=== PATIENT | female | born 1945 | race Caucasian/White ===

== ENCOUNTER 2017-06-03 10:26 | Emergency (ER) | payer MEDICARE, OTHER ==
[2017-06-03] MEDS ORDERED: LIDOCAINE PATCH 5% TOP STA (12:09)
[2017-06-03] MEDS ORDERED: DEXAMETHASONE 10 MG/ML VIAL PO STA (12:09)
[2017-06-03] MEDS ORDERED: CHERRY SYRUP 10 ML UDC PO ONE (12:24)
--- NOTE | 2017-06-03 12:29 | ED Physician Documentation ---
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 - Present Medications Home Medications: Ambulatory Orders Medication Instructions Recorded Confirmed Cyclobenzaprine [Flexeril] 5 mg 02/16/13 01/12/14 Omeprazole 20 mg PO 02/16/13 01/12/14 Pregabalin [Lyrica] 50 mg PO 02/16/13 01/12/14 buPROPion [Wellbutrin Sr] 100 mg PO BID 02/16/13 06/03/17 clonazePAM [KlonoPIN] 0.5 mg PO 02/16/13 01/12/14 Aspirin [Aspir 81] 01/12/14 01/12/14 Hyoscyamine Sulfate [Levsin-Sl] 0.125 mg SL TID #14 tab.subl 05/17/16 06/03/17 Ondansetron Odt [Zofran] 4 mg TL Q6H PRN #10 tablet 05/17/16 06/03/17 Pitavastatin Calcium [Livalo] 1 mg PO 05/17/16 05/17/16 Cyclobenzaprine [Flexeril] 10 mg PO BID PRN #10 tablet 06/03/17 Lidocaine Patch 5% [Lidoderm Patch] 1 each TOP DAILY PRN #10 patch 06/03/17 predniSONE [Deltasone] 20 mg PO [id number] #21 tab 06/03/17 - Allergies Allergies/Adverse Reactions: Allergies Allergy/AdvReac Type Severity Reaction Status Date / Time morphine Allergy Severe Respiratory Verified 02/16/13 12:21 Penicillins Allergy Intermediate Hives Verified 02/16/13 12:20 Jfdzwbg-Fhu-Rfp Reductase Allergy Cramps Verified 06/03/17 10:38 Inhibitor - Social History Does the pt smoke?: No Smoking Status: Never smoker Does the pt drink ETOH?: No Does the pt have substance abuse?: No - Immunizations Immunizations are current?: Yes PD ED PE NORMAL - Vitals Vital signs reviewed: Yes - General General: Alert and oriented X 3 - HEENT HEENT: Atraumatic - Neck Neck: No bony TTP - Cardiac Cardiac: RRR - Respiratory Respiratory: No respiratory distress, Clear bilaterally - Abdomen Abdomen: Soft, Non tender - Derm Derm: Normal color - Extremities Extremities: Other (TTP deltoid region R shoulder, able to range but pain with ABD to 90, no rash, not red or warm (except wear she had a heating patch applied - not the jt), MSV intact) Results - Vitals Vitals: Vital Signs - 24 hr 06/03/17 10:40 Temperature 36.0 C L Heart Rate 75 Respiratory 20 Rate Blood Pressure 111/64 O2 Saturation 100 Oxygen O2 Source Room air PD MEDICAL DECISION MAKING - ED course ED course: exam not c/w neck injury/abscess, no spetic shoulder jt, no shingles, no sig trauma, does not seem to be referred chest abd pain seems like shoulder pain with radicular sx Departure - Departure Disposition: 01 Home, Self Care Clinical Impression: Shoulder pain, right Qualifiers: Chronicity: acute Qualified Code(s): M25.511 - Pain in right shoulder Radiculopathy Qualifiers: Spinal region: unspecified Qualified Code(s): M54.10 - Radiculopathy, site unspecified Condition: Good Instructions: ED Sprain Shoulder, ED Cervical Radiculopathy Follow-Up: Adair Quintero MD [Primary Care Provider] - Prescriptions: Cyclobenzaprine [Flexeril] 10 mg PO BID PRN #10 tablet PRN Reason: muscle spasm Lidocaine Patch 5% [Lidoderm Patch] 1 each TOP DAILY PRN #10 patch PRN Reason: Pain predniSONE [Deltasone] 20 mg PO [id number] #21 tab
[2017-06-03 12:53] VITALS: BP 134/77
== END 2017-06-03 12:52 | disposition home or self-care (01) ==
LOC: ED 10:26
DX: M25.511 Pain in right shoulder (principal); M54.10 Radiculopathy, site unspecified; K21.9 Gastro-esophageal reflux disease without esophagitis; Z87.440 Personal history of urinary (tract) infections; Z87.442 Personal history of urinary calculi; M79.7 Fibromyalgia
CPT/HCPCS: 99283; A9270

== ENCOUNTER 2017-08-31 14:33 | Emergency (ER) | payer MEDICARE, OTHER ==
[2017-08-31 14:52] VITALS: BP 120/63
--- NOTE | 2017-08-31 15:41 | ED Physician Documentation ---
PD HPI URI - Stated complaint Stated Complaint: COUGH/SORE THROAT/HEAD MARK - Chief complaint Chief Complaint: Heent - History obtained from History obtained from: Patient - History of Present Illness Timing - onset: Other (72-year-old with a history of fibromyalgia and but no heart or pulmonary issues presents with 2 weeks of productive cough that was not too bad but then got worse late last week associated with especially right maxillary sinus pain. She was seen in urgent care and prescribed doxycycline. She is not really taking any other medications. She was getting better briefly but now worse again over the last 24 hours with sinus pain and cough but no fevers.) Review of Systems Constitutional: reports: Fatigue (from poor sleep d/t cough). denies: Fever, Chills Ears: denies: Ear pain, Drainage/discharge Nose: reports: Rhinorrhea / runny nose, Congestion, Sinus pressure / pain Throat: denies: Sore throat Respiratory: reports: Cough. 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 - Present Medications Home Medications: Ambulatory Orders Medication Instructions Recorded Confirmed Cyclobenzaprine [Flexeril] 5 mg 02/16/13 01/12/14 Omeprazole 20 mg PO 02/16/13 01/12/14 Pregabalin [Lyrica] 50 mg PO 02/16/13 01/12/14 buPROPion [Wellbutrin Sr] 100 mg PO BID 02/16/13 06/03/17 clonazePAM [KlonoPIN] 0.5 mg PO 02/16/13 01/12/14 Aspirin [Aspir 81] 01/12/14 01/12/14 Hyoscyamine Sulfate [Levsin-Sl] 0.125 mg SL TID #14 tab.subl 05/17/16 06/03/17 Ondansetron Odt [Zofran] 4 mg TL Q6H PRN #10 tablet 05/17/16 06/03/17 Pitavastatin Calcium [Livalo] 1 mg PO 05/17/16 05/17/16 Cyclobenzaprine [Flexeril] 10 mg PO BID PRN #10 tablet 06/03/17 Lidocaine Patch 5% [Lidoderm Patch] 1 each TOP DAILY PRN #10 patch 06/03/17 predniSONE [Deltasone] 20 mg PO [id number] #21 tab 06/03/17 Albuterol Sulfate [Proventil Hfa 1 - 2 puffs IH Q4H PRN #1 08/31/17 Inhaler] hfa.aer.ad Azithromycin [Zithromax] 250 mg PO DAILY #6 tablet 08/31/17 Mometasone Furoate [Nasonex] 1 spray NS BID #1 spray.pump 08/31/17 guaiFENesin/CODEINE [Robitussin AC] 5 - 10 ml PO Q6H PRN #120 ml 08/31/17 predniSONE [Deltasone] 20 mg PO [id number] #21 tab 08/31/17 - Allergies Allergies/Adverse Reactions: Allergies Allergy/AdvReac Type Severity Reaction Status Date / Time morphine Allergy Severe Respiratory Verified 08/31/17 14:52 Penicillins Allergy Intermediate Hives Verified 08/31/17 14:52 Xukvans-Mbw-Hoi Reductase Allergy Cramps Verified 08/31/17 14:52 Inhibitor - Social History Does the pt smoke?: No Smoking Status: Never smoker Does the pt drink ETOH?: No Does the pt have substance abuse?: No - Immunizations Immunizations are current?: Yes PD ED PE NORMAL - Vitals Vital signs reviewed: Yes - General General: Alert and oriented X 3, No acute distress - HEENT HEENT: PERRL, EOMI, Other (TTP R max sinus) - Neck Neck: Supple, no meningeal sign, No bony TTP, No adenopathy - Cardiac Cardiac: RRR, No murmur - Respiratory Respiratory: No respiratory distress, Other (mild rhonchi B bases) - Derm Derm: No rash - Neuro Neuro: Alert and oriented X 3, Normal speech Results - Vitals Vitals: Vital Signs - 24 hr 08/31/17 14:46 Temperature 37.5 C Heart Rate 86 Respiratory 18 Rate Blood Pressure 120/63 O2 Saturation 94 Oxygen O2 Source Room air PD MEDICAL DECISION MAKING - ED course ED course: We discussed at length that most sinus infections are viral so she may not improve with antibiotics, that says the time course does mandate antibiotic treatments. Zithromax chosen because of penicillin allergy. Departure - Departure Disposition: 01 Home, Self Care Clinical Impression: Sinusitis Qualifiers: Sinusitis location: maxillary Chronicity: subacute Qualified Code(s): J01.00 - Acute maxillary sinusitis, unspecified Condition: Good Record reviewed to determine appropriate education?: Yes Instructions: ED Sinusitis Abx Tx Prescriptions: Albuterol Sulfate [Proventil Hfa Inhaler] 1 - 2 puffs IH Q4H PRN #1 hfa.aer.ad PRN Reason: Cough Azithromycin [Zithromax] 250 mg PO DAILY #6 tablet guaiFENesin/CODEINE [Robitussin AC] 5 - 10 ml PO Q6H PRN #120 ml PRN Reason: Cough Mometasone Furoate [Nasonex] 1 spray NS BID #1 spray.pump predniSONE [Deltasone] 20 mg PO [id number] #21 tab Comments: Call your doctor to arrange a follow-up appointment, make the next available appointment. In the interim, return anytime if worse or if new symptoms develop. Discharge Date/Time: 08/31/17 15:46
== END 2017-08-31 15:46 | disposition home or self-care (01) ==
LOC: ED 14:33
DX: J01.00 Acute maxillary sinusitis, unspecified (principal)
CPT/HCPCS: 99283

== ENCOUNTER 2018-03-08 13:06 | Emergency (ER) | payer MEDICARE, OTHER ==
[2018-03-08 13:39] LABS: BILIRUBIN,URINE NEGATIVE (NEGATIVE); GLUCOSE, URINE (UA) NEGATIVE (NEGATIVE); KETONES,URINE (UA) NEGATIVE (NEGATIVE); LEUKOCYTE ESTERASE, URINE NEGATIVE (NEGATIVE); NITRITE,URINE NEGATIVE (NEGATIVE); OCCULT BLOOD,URINE TRACE-LYSE (NEGATIVE); PROTEIN,URINE NEGATIVE (NEGATIVE); UROBILINOGEN,URINE 0.2 (NORMAL) E.U./dL (NORMAL)
[2018-03-08 13:44] LABS: CLARITY,URINE CLEAR (CLEAR)
--- NOTE | 2018-03-08 14:12 | ED Physician Documentation ---
PD HPI FEMALE - Stated complaint Stated Complaint: FEMALE - Chief complaint Chief Complaint: General - History obtained from History obtained from: Patient - History of Present Illness Timing - onset: How many weeks ago (1) Timing - duration: Weeks (noted odorous urine for a week and now pelvic and lower back pain for couple days. Has had some soft stools at times, without blood nor mucous.) Timing - details: Gradual onset, Waxing and waning Associated symptoms: Back pain, Pelvic pain. No: Fever, Vaginal discharge, G enital sore/lesion, Dysuria (but said it was odorous), Urinary frequency Similar symptoms before: Diagnosis (UTIs) Recently seen: Not recently seen Review of Systems Constitutional: denies: Fever, Chills, Myalgias Nose: denies: Rhinorrhea / runny nose, Congestion Throat: denies: Sore throat Respiratory: denies: Cough GI: denies: Nausea, Vomiting, Diarrhea : denies: Hematuria, Discharge Skin: denies: Rash PD PAST MEDICAL HISTORY - Past Medical History Past Medical History: Yes Respiratory: Other GI: GERD, Other : Chronic bladder infection, Kidney stones HEENT: Chronic hearing loss Psych: Depression, Anxiety Musculoskeletal: Fibromyalgia - Past Surgical History 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 - Present Medications Home Medications: Ambulatory Orders Medication Instructions Recorded Confirmed Cyclobenzaprine [Flexeril] 5 mg 02/16/13 01/12/14 Omeprazole 20 mg PO 02/16/13 01/12/14 Pregabalin [Lyrica] 50 mg PO 02/16/13 01/12/14 buPROPion [Wellbutrin Sr] 100 mg PO BID 02/16/13 06/03/17 clonazePAM [KlonoPIN] 0.5 mg PO 02/16/13 01/12/14 Aspirin [Aspir 81] 01/12/14 01/12/14 Hyoscyamine Sulfate [Levsin-Sl] 0.125 mg SL TID #14 tab.subl 05/17/16 06/03/17 Ondansetron Odt [Zofran] 4 mg TL Q6H PRN #10 tablet 05/17/16 06/03/17 Pitavastatin Calcium [Livalo] 1 mg PO 05/17/16 05/17/16 Cyclobenzaprine [Flexeril] 10 mg PO BID PRN #10 tablet 06/03/17 Lidocaine Patch 5% [Lidoderm Patch] 1 each TOP DAILY PRN #10 patch 06/03/17 predniSONE [Deltasone] 20 mg PO [id number] #21 tab 06/03/17 Albuterol Sulfate [Proventil Hfa 1 - 2 puffs IH Q4H PRN #1 08/31/17 Inhaler] hfa.aer.ad Azithromycin [Zithromax] 250 mg PO DAILY #6 tablet 08/31/17 Mometasone Furoate [Nasonex] 1 spray NS BID #1 spray.pump 08/31/17 guaiFENesin/CODEINE [Robitussin AC] 5 - 10 ml PO Q6H PRN #120 ml 08/31/17 predniSONE [Deltasone] 20 mg PO [id number] #21 tab 08/31/17 Cephalexin [Keflex] 500 mg PO BID #14 capsule 03/08/18 HYDROcod/ACETAM 5/325 [[place] 5/325] 1 tab PO Q6H PRN #12 tablet 03/08/18 Metronidazole [Flagyl] 500 mg PO BID #14 tablet 03/08/18 Naproxen 375 mg PO BID #20 tablet 03/08/18 - Allergies Allergies/Adverse Reactions: Allergies Allergy/AdvReac Type Severity Reaction Status Date / Time morphine Allergy Severe Respiratory Verified 08/31/17 14:52 Penicillins Allergy Intermediate Hives Verified 08/31/17 14:52 Mrcvxii-Rzd-Hoo Reductase Allergy Cramps Verified 08/31/17 14:52 Inhibitor - Social History Does the pt smoke?: No Smoking Status: Never smoker Does the pt drink ETOH?: No Does the pt have substance abuse?: No - Immunizations Immunizations are current?: Yes - POLST Patient has POLST: Yes PD ED PE NORMAL - Vitals Vital signs reviewed: Yes - General General: Alert and oriented X 3, No acute distress, Well developed/nourished - HEENT HEENT: Moist mucous membranes, Pharynx benign - Neck Neck: Supple, no meningeal sign, No adenopathy - Cardiac Cardiac: RRR, No murmur - Respiratory Respiratory: Clear bilaterally - Abdomen Abdomen: Normal bowel sounds, Soft, Non distended, No organomegaly, Other (t april lower abd left and mid. No guarding, percussion tendernesss nor rebound tenderness. 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 There is greenish mild discharge in vault with malodor. No redness. Cervix appears okay without dicharge. ) - Rectal Rectal: Deferred - Back Back: No CVA TTP - Derm Derm: Normal color, Warm and dry - Extremities Extremities: No tenderness to palpate, Normal ROM s pain - Neuro Neuro: Alert and oriented X 3, No motor deficit, Normal speech Results - Vitals Vitals: Oxygen O2 Source Room air - Labs Labs: Microbiology 03/08/18 15:10 Wet Prep - Final Genital - Cervix Laboratory Tests 03/08/18 03/08/18 03/08/18 13:32 15:17 15:17 WBC 8.3 RBC 5.05 Hgb 14.8 Hct 43.3 MCV 85.8 MCH 29.3 MCHC 34.2 RDW 13.9 Plt Count 313 MPV 6.5 L Neut # (Auto) 4.3 Lymph # (Auto) 3.1 [place] # (Auto) 0.6 Eos # (Auto) 0.2 Baso # (Auto) 0.1 Absolute Nucleated RBC 0.00 Nucleated RBC % 0.0 Sodium 138 Potassium 3.9 Chloride 100 L Carbon Dioxide 30 Anion Gap 8.0 BUN 9 Creatinine 0.8 Estimated GFR (MDRD) 71 L Glucose 99 Calcium 10.0 Total Bilirubin 0.7 AST 18 ALT 17 Alkaline Phosphatase 74 Total Protein 7.3 Albumin 4.2 Globulin 3.1 Albumin/Globulin Ratio 1.4 Lipase 32 Urine Color YELLOW Urine Clarity CLEAR Urine pH 6.0 Ur Specific [place] <=1.005 Urine Protein NEGATIVE Urine Glucose (UA) NEGATIVE Urine Ketones NEGATIVE Urine Occult Blood TRACE-LYSE Urine Nitrite NEGATIVE Urine Bilirubin NEGATIVE Urine Urobilinogen 0.2 (NORMAL) Ur Leukocyte Esterase NEGATIVE Ur Microscopic Review NOT INDICATED Urine Culture Comments NOT INDICATED PD MEDICAL DECISION MAKING - ED course Complexity details: reviewed results (UA is negative. Vag exam is c/w BV, though wet prep negative. I would still consider likely. Consider diverticulitis in sigmoid area, and would give similar symptoms. No history of diverticulitis, though. Our CT scan is down today just in the past hour and will be until tomorrow. I talked with patient about it with patient. Would give Flagyl for the BV, and can add Keflex for assumption of possible divertic, without doing imaging, and see how she does and possible outpt imaging if not improved. Versus transfer for CT/etc. She opts for empiric treatment. ), considered differential (consider UTI, vaginitis, intestinal process. Ovarian less likely. ), d/w patient - Sepsis Event Vital Signs: Oxygen O2 Source Room air Departure - Departure Disposition: Home, Self Care Clinical Impression: Lower abdominal pain, Bacterial vaginitis Condition: Stable Record reviewed to determine appropriate education?: Yes Instructions: ED Abdominal Pain Unkn Cause, ED Vaginosis Bacterial Follow-Up: Adair Quintero MD [Primary Care Provider] - Prescriptions: Cephalexin [Keflex] 500 mg PO BID #14 capsule HYDROcod/ACETAM 5/325 [[place] 5/325] 1 tab PO Q6H PRN #12 tablet PRN Reason: Pain Metronidazole [Flagyl] 500 mg PO BID #14 tablet Naproxen 375 mg PO BID #20 tablet Comments: There is some discharge vaginally with odor that is suggestive of bacterial vaginitis. We will treat that with some antibiotics. Your urine test appeared normal without signs of infection. I would consider whether there may be some intestinal infection or irritation such as colitis or diverticulitis. We will treated with naproxen anti-inflammatory twice daily and add Tylenol or hydrocodone if needed for pain. Flagyl antibiotic twice daily for a week which would be the treatment for the vaginitis as well. Also Keflex twice daily for a week. Follow-up with your primary care on Thursday as planned. Return sooner if worsening. Drink lots of fluids. Discharge Date/Time: 03/08/18 17:03
[2018-03-08 15:26] LABS: BASOPHILS # (AUTO) 0.1 10^3/uL (0.0-0.1); BASOPHILS % (AUTO) 1.4 %; EOSINOPHILS # (AUTO) 0.2 10^3/uL (0.0-0.7); HGB - HEMOGLOBIN 14.8 g/dL (12.0-16.0); LYMPHOCYTES # (AUTO) 3.1 10^3/uL (1.5-3.5); LYMPHOCYTES % (AUTO) 37.5 %; MEAN CORPUSCULAR HEMOGLOBIN 29.3 pg (27.0-31.0); MEAN CORPUSCULAR HGB CONC 34.2 g/dL (32.0-36.0); MEAN CORPUSCULAR VOLUME 85.8 fL (81.0-99.0); MEAN PLATELET VOLUME 6.5 fL (7.9-10.8); MONOCYTES # (AUTO) 0.6 10^3/uL (0.0-1.0); MONOCYTES % (AUTO) 7.6 %; NEUTROPHILS # (AUTO) 4.3 10^3/uL (1.5-6.6); NEUTROPHILS % (AUTO) 51.5 %; PLT - PLATELET COUNT 313 10^3/uL (130-450); RED BLOOD COUNT 5.05 10^6/uL (4.20-5.40); RED CELL DISTRIBUTION WIDTH 13.9 % (12.0-15.0); WHITE BLOOD COUNT 8.3 x10^3/uL (4.8-10.8)
[2018-03-08 15:39] LABS: ALBUMIN 4.2 g/dL (3.2-5.5); ALBUMIN/GLOBULIN RATIO 1.4 (1.0-2.2); BILIRUBIN,TOTAL 0.7 mg/dL (0.2-1.0); CREATININE 0.8 mg/dL (0.4-1.0); TOTAL PROTEIN 7.3 g/dL (6.7-8.2)
[2018-03-08] MEDS ORDERED: cephALEXin 250 MG CAPSULE PO STA (16:34)
[2018-03-08] MEDS ORDERED: metroNIDAZOLE 250 MG TABLET PO STA (16:34)
[2018-03-08] MEDS ORDERED: HYDROcod/ACETAM 5/325 MG TABLET PO STA (16:34)
[2018-03-08 17:03] VITALS: BP 130/78
== END 2018-03-08 17:03 | disposition home or self-care (01) ==
LOC: ED 13:06
DX: N76.0 Acute vaginitis (principal); B96.89 Other specified bacterial agents as the cause of diseases classified elsewhere; Z79.82 Long term (current) use of aspirin
CPT/HCPCS: 80053; 81001; 81003; 83690; 85025; 87086; 87210; 87491; 87591; 99283

== ENCOUNTER 2018-05-26 11:19 | Emergency (ER) | payer MEDICARE, OTHER ==
[2018-05-26] MEDS ORDERED: SODIUM CHLORIDE 0.9% 1,000 ML IV ONE (11:36)
[2018-05-26] MEDS ORDERED: KETOROLAC 60 MG/2 ML VIAL IVP STA (11:36)
--- NOTE | 2018-05-26 11:45 | ED Physician Documentation ---
History of Present Illness - Stated complaint Stated Complaint: SIDE PX - Chief complaint Chief Complaint: Abd Pain - Additonal information Additional information: hx from pt 73 y/o f hx kidney stones - had surgery for an infected stone in the past otherwise pmhx fibromylagia IBS sinus issues past abd surg c sectionX2 and kidney stone to ED with one month of int R flank to right lower abd pain no fever no NVD no urinary sx pain is getting quite severe saw PMD for same rx massage therapy Review of Systems Constitutional: denies: Fever, Chills Cardiac: denies: Chest pain / pressure Respiratory: denies: Dyspnea GI: reports: Abdominal Pain. 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 - Present Medications Home Medications: Ambulatory Orders Medication Instructions Recorded Confirmed Omeprazole 20 mg PO 02/16/13 01/12/14 Pregabalin [Lyrica] 50 mg PO 02/16/13 01/12/14 clonazePAM [KlonoPIN] 0.5 mg PO 02/16/13 01/12/14 Aspirin [Aspir 81] 1 tab PO DAILY 01/12/14 01/12/14 Pitavastatin Calcium [Livalo] 1 mg PO 05/17/16 05/17/16 Naproxen 375 mg PO BID #20 tablet 03/08/18 Acetaminophen/Cod 300/30 [Tylenol 1 each PO Q6H PRN #10 tablet 05/26/18 #3] Cephalexin [Keflex] 500 mg PO Q6H #40 capsule 05/26/18 Cholecalciferol (Vitamin D3) 1 cap PO DAILY 05/26/18 05/26/18 [Vitamin D3] DULoxetine [Cymbalta] 60 mg PO DAILY 05/26/18 05/26/18 Fluticasone [Flonase] 2 puffs INH DAILY 05/26/18 05/26/18 Ondansetron Odt [Zofran] 4 mg TL Q6H PRN #10 tablet 05/26/18 - Allergies Allergies/Adverse Reactions: Allergies Allergy/AdvReac Type Severity Reaction Status Date / Time morphine Allergy Severe Respiratory Verified 05/26/18 11:34 Penicillins Allergy Intermediate Hives Verified 05/26/18 11:34 Tzdbsrr-Veu-Iry Reductase Allergy Cramps Verified 08/31/17 14:52 Inhibitor - Social History Does the pt smoke?: No Smoking Status: Never smoker Does the pt drink ETOH?: No Does the pt have substance abuse?: No - Immunizations Immunizations are current?: Yes - POLST Patient has POLST: Yes PD ED PE NORMAL - Vitals Vital signs reviewed: Yes - Cardiac Cardiac: RRR - Respiratory Respiratory: No respiratory distress, Clear bilaterally - Abdomen Abdomen: Soft, Non tender (in pain but not worse with palp), Other (no pulsatile mass) - Back Back: No: No CVA TTP (mild right) - Derm Derm: Normal color - Neuro Neuro: Alert and oriented X 3 Results - Vitals Vitals: Vital Signs - 24 hr 05/26/18 05/26/18 05/26/18 11:30 14:20 15:05 Temperature 36.9 C Heart Rate 72 79 86 Respiratory 16 18 18 Rate Blood Pressure 141/100 H 129/86 H 128/89 H O2 Saturation 97 93 97 Oxygen O2 Source Room air - Labs Labs: Laboratory Tests 05/26/18 05/26/18 05/26/18 11:50 12:07 12:07 WBC 13.3 H RBC 4.91 Hgb 14.6 Hct 42.2 MCV 85.9 MCH 29.8 MCHC 34.6 RDW 13.3 Plt Count 291 MPV 6.7 L Neut # (Auto) 9.4 H Lymph # (Auto) 2.7 [place] # (Auto) 0.9 Eos # (Auto) 0.2 Baso # (Auto) 0.1 Absolute Nucleated RBC 0.00 Nucleated RBC % 0.0 Sodium 135 Potassium 3.4 L Chloride 101 Carbon Dioxide 27 Anion Gap 7.0 BUN 12 Creatinine 0.7 Estimated GFR (MDRD) 82 L Glucose 92 Calcium 9.7 Total Bilirubin 1.1 H AST 17 ALT 22 Alkaline Phosphatase 82 Total Protein 7.6 Albumin 4.3 Globulin 3.3 Albumin/Globulin Ratio 1.3 Lipase 25 Urine Color YELLOW Urine Clarity HAZY Urine pH 6.5 Ur Specific [place] <=1.005 Urine Protein NEGATIVE Urine Glucose (UA) NEGATIVE Urine Ketones NEGATIVE Urine Occult Blood LARGE H Urine Nitrite NEGATIVE Urine Bilirubin NEGATIVE Urine Urobilinogen 0.2 (NORMAL) Ur Leukocyte Esterase MODERATE H Urine RBC 0-5 Urine WBC >25 H Ur Squamous Epith Cells NONE SEEN Urine Bacteria Moderate H Ur Microscopic Review INDICATED Urine Culture Comments INDICATED - Rads (name of study) CT AP Radiology: See rad report (no stones, no acute process noted in rad report) PD MEDICAL DECISION MAKING - ED course ED course: pyelo no stones or AAA on CT bili 1.1 but no ruq TTP on exam and no GB dz on CT will tx with ab and dc all to penicillin but states has taken keflex before s adverse rxn gave IV rocephin dc on keflex pending cx Departure - Departure Disposition: 01 Home, Self Care Clinical Impression: Pyelonephritis Condition: Good Instructions: ED Kidney Infec Female Follow-Up: Adair Quintero MD [Primary Care Provider] - Prescriptions: Acetaminophen/Cod 300/30 [Tylenol #3] 1 each PO Q6H PRN #10 tablet PRN Reason: Severe Pain Cephalexin [Keflex] 500 mg PO Q6H #40 capsule Ondansetron Odt [Zofran] 4 mg TL Q6H PRN #10 tablet PRN Reason: Nausea / Vomiting Comments: Rest drink plenty of fluids The ER will call you if the culture results indicate a need to change antibiotics Follow up with your PMD for a recheck in 2 days Return if worse Forms: Activity restrictions Discharge Date/Time: 05/26/18 15:10
[2018-05-26 12:18] LABS: BILIRUBIN,URINE NEGATIVE (NEGATIVE); GLUCOSE, URINE (UA) NEGATIVE (NEGATIVE); KETONES,URINE (UA) NEGATIVE (NEGATIVE); LEUKOCYTE ESTERASE, URINE MODERATE (NEGATIVE); NITRITE,URINE NEGATIVE (NEGATIVE); OCCULT BLOOD,URINE LARGE (NEGATIVE); PH,URINE 6.5 PH (5.0-7.5); PROTEIN,URINE NEGATIVE (NEGATIVE); UROBILINOGEN,URINE 0.2 (NORMAL) E.U./dL (NORMAL)
[2018-05-26 12:19] LABS: BASOPHILS # (AUTO) 0.1 10^3/uL (0.0-0.1); BASOPHILS % (AUTO) 0.7 %; EOSINOPHILS # (AUTO) 0.2 10^3/uL (0.0-0.7); EOSINOPHILS % (AUTO) 1.4 %; HGB - HEMOGLOBIN 14.6 g/dL (12.0-16.0); LYMPHOCYTES # (AUTO) 2.7 10^3/uL (1.5-3.5); LYMPHOCYTES % (AUTO) 20.3 %; MEAN CORPUSCULAR HEMOGLOBIN 29.8 pg (27.0-31.0); MEAN CORPUSCULAR HGB CONC 34.6 g/dL (32.0-36.0); MEAN CORPUSCULAR VOLUME 85.9 fL (81.0-99.0); MEAN PLATELET VOLUME 6.7 fL (7.9-10.8); MONOCYTES # (AUTO) 0.9 10^3/uL (0.0-1.0); MONOCYTES % (AUTO) 6.8 %; NEUTROPHILS # (AUTO) 9.4 10^3/uL (1.5-6.6); NEUTROPHILS % (AUTO) 70.8 %; PLT - PLATELET COUNT 291 10^3/uL (130-450); RED BLOOD COUNT 4.91 10^6/uL (4.20-5.40); RED CELL DISTRIBUTION WIDTH 13.3 % (12.0-15.0); WHITE BLOOD COUNT 13.3 x10^3/uL (4.8-10.8)
[2018-05-26 12:21] LABS: CLARITY,URINE HAZY (CLEAR)
--- NOTE | 2018-05-26 12:22 | CT Report ---
Reason: R flank to RLQ pain hx renal colic Procedure Date: 05/26/2018 Accession Number: [id number] / [id number] Procedure: CT - Abdomen/Pelvis W/O CPT Code: FULL RESULT: EXAM: CT ABDOMEN AND PELVIS (CT KUB) EXAM DATE: 05/26/2018 11:59 AM. CLINICAL HISTORY: Right flank to right lower quadrant pain; history of renal colic. COMPARISONS: ABDOMEN/PELVIS W/ 05/17/2016 6:05 PM. TECHNIQUE: Routine axial helical CT imaging was performed through the abdomen and pelvis without IV contrast. Reconstructions: Coronal and sagittal. In accordance with CT protocol optimization, one or more of the following dose reduction techniques were utilized for this exam: automated exposure control, adjustment of mA and/or KV based on patient size, or use of iterative reconstructive technique. FINDINGS: Lung Bases: Unremarkable. Right Kidney/Ureter: No stones, hydronephrosis, or hydroureter. No perinephric fat stranding. Left Kidney/Ureter: No stones, hydronephrosis, or hydroureter. No perinephric fat stranding. Other Solid Organs: Noncontrast images of the solid organs are grossly unremarkable. Gallbladder/Bile Ducts: Unremarkable. Peritoneal Cavity: No free fluid, free air or reggie adenopathy. Bowel is grossly unremarkable. The appendix is not seen. Pelvic Organs: No bladder stones or wall thickening. Noncontrast images of the visualized pelvic organs are unremarkable. Vasculature: Unremarkable. Other: Stable lumbar predominant levoscoliosis with no reggie aggressive osseous lesions identified. IMPRESSION: No urinary tract stones or obstruction. RADIA
[2018-05-26 12:32] LABS: ALBUMIN 4.3 g/dL (3.2-5.5); ALBUMIN/GLOBULIN RATIO 1.3 (1.0-2.2); BILIRUBIN,TOTAL 1.1 mg/dL (0.2-1.0); CALCIUM 9.7 mg/dL (8.5-10.3); CREATININE 0.7 mg/dL (0.4-1.0); TOTAL PROTEIN 7.6 g/dL (6.7-8.2)
[2018-05-26 12:41] LABS: RBC,URINE 0-5 /HPF (0-5)
[2018-05-26 12:42] LABS: BACTERIA,URINE Moderate /HPF (None Seen); SQUAMOUS EPITHELIAL CELL,UR NONE SEEN (<= Few)
[2018-05-26] MEDS ORDERED: cefTRIAXone 1 GM in SODIUM CHLORIDE 0.9% MINIBAG 100 ML IV STA (13:00)
[2018-05-26] MEDS ORDERED: ACETAMINOPHEN/CODEINE 300 MG/30 MG TABLET PO STA (13:03)
[2018-05-26] MEDS ORDERED: ONDANSETRON ODT 4 MG TABLET TL STA (13:04)
[2018-05-26 15:05] VITALS: BP 128/89
== END 2018-05-26 15:10 | disposition home or self-care (01) ==
LOC: ED 11:19
DX: N12 Tubulo-interstitial nephritis, not specified as acute or chronic (principal); M79.7 Fibromyalgia; Z87.442 Personal history of urinary calculi
CPT/HCPCS: 36415; 74176; 80053; 81001; 83690; 85025; 87086; 96361; 96365; 96375; 99283; A9270; Q0162; 81003; 87181

== ENCOUNTER 2018-08-23 12:47 | Outpatient (CLI) | payer MEDICARE, OTHER | END 2018-08-23 12:48 | disposition home or self-care (01) | LOC: NS 12:47 | PROVIDERS: ATTEND Registered Nurse | DX: Z71.3 Dietary counseling and surveillance (principal); D50.9 Iron deficiency anemia, unspecified | CPT/HCPCS: 97802 ==

== ENCOUNTER 2020-02-24 15:28 | Outpatient (CLI) | payer MEDICARE, OTHER | END 2020-02-24 15:29 | disposition home or self-care (01) | LOC: LAB.S 15:28 | PROVIDERS: ATTEND Internal Medicine | DX: R26.89 Other abnormalities of gait and mobility (principal) | CPT/HCPCS: 36415; 82607 ==

== ENCOUNTER 2021-01-09 15:32 | Outpatient (CLI) | payer MEDICARE, OTHER ==
[2021-01-09 19:52] LABS: BASOPHILS # (AUTO) 0.1 10^3/uL (0.0-0.1); BASOPHILS % (AUTO) 1.3 %; EOSINOPHILS # (AUTO) 0.3 10^3/uL (0.0-0.7); EOSINOPHILS % (AUTO) 3.1 %; HCT - HEMATOCRIT 41.6 % (37.0-47.0); HGB - HEMOGLOBIN 13.8 g/dL (12.0-16.0); LYMPHOCYTES # (AUTO) 3.3 10^3/uL (1.5-3.5); MEAN CORPUSCULAR HEMOGLOBIN 29.3 pg (27.0-31.0); MEAN CORPUSCULAR HGB CONC 33.2 g/dL (32.0-36.0); MEAN CORPUSCULAR VOLUME 88.3 fL (81.0-99.0); MEAN PLATELET VOLUME 9.1 fL (7.9-10.8); MONOCYTES # (AUTO) 0.8 10^3/uL (0.0-1.0); MONOCYTES % (AUTO) 8.4 %; NEUTROPHILS # (AUTO) 5.1 10^3/uL (1.5-6.6); NEUTROPHILS % (AUTO) 52.8 %; PLT - PLATELET COUNT 334 10^3/uL (130-450); RED BLOOD COUNT 4.71 10^6/uL (4.20-5.40); RED CELL DISTRIBUTION WIDTH 12.6 % (12.0-15.0); WHITE BLOOD COUNT 9.7 x10^3/uL (4.8-10.8)
[2021-01-09 20:17] LABS: ALBUMIN 3.9 g/dL (3.2-5.5); ALBUMIN/GLOBULIN RATIO 1.3 (1.0-2.2); BILIRUBIN,TOTAL 0.8 mg/dL (0.2-1.0); CALCIUM 9.4 mg/dL (8.5-10.3); CREATININE 0.7 mg/dL (0.4-1.0); POTASSIUM 3.9 mmol/L (3.5-5.0)
== END 2021-01-09 15:33 | disposition home or self-care (01) ==
LOC: LAB.S 15:32
PROVIDERS: ATTEND Internal Medicine
DX: R13.10 Dysphagia, unspecified (principal); R53.83 Other fatigue
CPT/HCPCS: 36415; 80053; 83690; 85025

== ENCOUNTER 2021-02-04 08:00 | Outpatient (CLI) | payer MEDICARE, OTHER | END 2021-02-04 23:59 | disposition home or self-care (01) | LOC: LAB.S 08:00 | PROVIDERS: ATTEND Physician Assistant Medical | DX: R07.0 Pain in throat (principal); B97.89 Other viral agents as the cause of diseases classified elsewhere; R50.9 Fever, unspecified; Z20.822 Contact with and (suspected) exposure to COVID-19 ==

== ENCOUNTER 2021-05-29 09:31 | Outpatient (CLI) | payer MEDICARE, OTHER | END 2021-05-29 09:32 | disposition EMS.NT | LOC: EMS 09:31 | DX: R20.2 Paresthesia of skin (principal); R25.2 Cramp and spasm; R20.0 Anesthesia of skin; R07.9 Chest pain, unspecified ==

== ENCOUNTER 2021-09-16 08:00 | Outpatient (CLI) | payer MEDICARE, OTHER | END 2021-09-16 23:59 | disposition home or self-care (01) | LOC: LAB.S 08:00 | PROVIDERS: ATTEND Registered Nurse | DX: R30.0 Dysuria (principal) | CPT/HCPCS: 87086; 87181 ==

== ENCOUNTER 2022-12-29 08:00 | Outpatient (CLI) | payer MEDICARE, OTHER ==
[2022-12-29 23:36] LABS: BACTERIAL VAGINOSIS DNA NEGATIVE (NEGATIVE); CANDIDA GLABRATA DNA NEGATIVE (NEGATIVE); CANDIDA GROUP DNA NEGATIVE (NEGATIVE); CANDIDA KRUSEI DNA NEGATIVE (NEGATIVE); TRICHOMONAS VAGINALIS DNA NEGATIVE (NEGATIVE)
== END 2022-12-29 23:59 | disposition home or self-care (01) ==
LOC: LAB.S 08:00
PROVIDERS: ATTEND Physician Assistant
DX: R30.0 Dysuria (principal); N76.0 Acute vaginitis
CPT/HCPCS: 81514; 87086

== ENCOUNTER 2023-03-26 08:00 | Outpatient (CLI) | payer MEDICARE, OTHER ==
--- NOTE | 2023-03-26 18:57 | XRAY Report ---
PROCEDURE: Chest 2 View X-Ray INDICATIONS: COVID+ TECHNIQUE: 2 views of the chest were acquired. COMPARISON: None. FINDINGS: Surgical changes and devices: None. Lungs and pleura: No pleural effusions or pneumothorax. Lungs are clear. Mediastinum: Mediastinal contours appear normal. Heart size is normal. Bones and chest wall: No suspicious bony lesions. Overlying soft tissues appear unremarkable. IMPRESSION: No acute cardiopulmonary process. No evidence of viral pneumonia. Reviewed by: Gabe Phillips on 03/26/2023 6:56 PM PDT Approved by: Gabe Phillips on 03/26/2023 6:56 PM PDT Station ID: [id number]
== END 2023-03-26 23:59 | disposition home or self-care (01) ==
LOC: DI.S 08:00
PROVIDERS: ATTEND Physician Assistant Medical
DX: U07.1 COVID-19 (principal)